=== PATIENT | male | born 1995 | race Hispanic/Latino ===

== ENCOUNTER 2022-11-19 16:28 | Emergency (ER) | payer SELFPAY ==
[2022-11-19] MEDS ORDERED: Tetracaine 0.5% PF 4 ML BOT ONE (17:00)
== END 2022-11-19 17:38 | disposition home or self-care (01) ==
LOC: CSHERS 16:28
DX: H10.9 Unspecified conjunctivitis (principal)
CPT/HCPCS: 99283

== ENCOUNTER 2023-10-06 15:58 | Emergency (ER) | payer SELFPAY ==
[2023-10-06] MEDS ORDERED: HYDROcodone/Acetaminophen 10/325 mg Tablet ONE ×2 (17:22→19:57)
== END 2023-10-06 20:00 | disposition home or self-care (01) ==
LOC: CSHERS 15:58
DX: S02.612A Fracture of condylar process of left mandible, initial encounter for closed fracture (principal); W01.0XXA Fall on same level from slipping, tripping and stumbling without subsequent striking against object, initial encounter; Y99.0 Civilian activity done for income or pay
CPT/HCPCS: 70486